=== PATIENT | female | born 1980 | race Two or more races ===

== ENCOUNTER 2021-06-20 15:31 | Emergency (ER) | payer MEDICAID ==
[~2021-06-20] VITALS: Ht 165.1 cm; Wt 63.5 kg
--- NOTE | 2021-06-20 15:40 | NUR ---
RADHA "Fell in the park now c/o Pain in L clavicle/shoulder". TO ER BED 3, HOOKED TO MONITOR, CHANGED TO HOSP GOWN, WARM BLANKET PROVIDED, AWAITING MD ATKINS
--- NOTE | 2021-06-20 15:51 | NUR ---
DR HIGGINS AT BEDSIDE
--- NOTE | 2021-06-20 16:11 | NUR ---
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
[2021-06-20 17:10] VITALS: BP 116/70
[2021-06-20] MEDS ORDERED: OXYC-128 PO (18:19)
[2021-06-20] MEDS ORDERED: HYDROCODONE/APAP 5/325MG TABLET ONE (18:20)
[2021-06-20] MEDS ORDERED: HYDROCODONE/APAP 5/325MG TABLET PO ONE (18:30)
--- NOTE | 2021-06-20 18:35 | NUR ---
Patient discharged to home in stable condition. Written and verbal after care instructions given. Patient verbalizes understanding of instruction.
== END 2021-06-20 18:35 | disposition home or self-care (01) ==
LOC: ER 15:34
DX: S42.032A Displaced fracture of lateral end of left clavicle, initial encounter for closed fracture (principal); Z79.891 Long term (current) use of opiate analgesic; W18.30XA Fall on same level, unspecified, initial encounter; Y93.K1 Activity, walking an animal; Y92.89 Other specified places as the place of occurrence of the external cause; Y99.8 Other external cause status
CPT/HCPCS: 73030-TC